=== PATIENT | female | born 1965 | race Caucasian/White ===

== ENCOUNTER 2019-05-08 11:36 | Emergency (ER) | payer SELFPAY ==
[2019-05-08 11:42] VITALS: BP 158/114; PULSE 94; RESP 18; TEMP 36.6; O2SAT 100; BMI 20.2
--- NOTE | 2019-05-08 11:50 | W.ED.SKABFB ---
HPI - Skin/Abscess/Foreign Bdy General: Chief complaint: Skin/Abscess/Foreign Body Stated complaint: upper lip infection Time Seen by Provider: 05/08/19 11:40 History of Present Illness: HPI narrative: Patient is a 53-year-old female who comes to the ED with upper lip cellulitis. Patient states on she woke up in her upper lip was swollen and red. Patient did state that she was having a lot of nasal drainage and blowing her nose a lot in the days leading up to . Patient says that her upper lip was little dry due to all the nasal drainage before . On Thursday she went into the urgent care and they gave her 2 steroid injections and put her on Bactrim. Patient says after the steroids some of the swelling did go down on Thursday, but today she woke up and the swelling and pain is worse and she rated the pain a 9 out of 10. She is taken 2 days worth of doses of the antibiotic since Thursday. Denies any drainage or known injury to cause swelling or infection. She denies any fever or chills. She denies any past history of MRSA or staph iinfections. Associated symptoms: Deny chills, fever(s), nausea or vomiting Review of Systems Const: Denies: fever, chills or fatigue Eyes: Denies: change in vision or eye discomfort ENMT: Denies: throat pain, painful swallowing, nasal discharge or nasal congestion Card: Denies: chest pain, palpitations, edema, swelling of feet/ankles, shortness of breath on exertion or shortness of breath when lying down Resp: Denies: shortness of breath, productive cough or non-productive cough GI: Denies: abdominal pain, nausea, vomiting, diarrhea, constipation or blood in stool : Denies: flank pain, painful urination or blood in urine Musc: Denies: neck pain, back pain or extremity swelling Skin/Breast: Reports: redness (upper lip), skin tenderness (upper lip), skin swelling (upper lip) and new lesion (upper lip); Denies: rash Neuro: Denies: headache, numbness in extremities or weakness in extremities PFSH ED PFSH: Social History Smoking and tobacco status: current every day smoker Physical Exam Narrative: EXAM NARRATIVE: Patient is a 53-year-old female that is sitting on the exam bed when I enter the room. Patient has noticeable upper lip swelling and redness. Const: COMMON NORMALS: oriented x3 HENMT: COMMON NORMALS: normocephalic HEAD & SCALP: normocephalic MOUTH: oral and palatal mucosa normal THROAT: posterior oropharynx normal and uvula midline Neck/C-Spine: COMMON NORMALS: supple GENERAL: Yes normal visual inspection Resp: COMMON NORMALS: normal respiratory effort, no retractions, no use of accessory muscles and clear to auscultation bilaterally AUSCULTATION: clear to auscultation bilaterally Cardio: COMMON NORMALS: regular rate, regular rhythm, S1 normal heart sound, S2 normal heart sound, no gallops, no clicks, no murmurs and peripheral pulses 2+ throughout RATE: regular rate RHYTHM: regular rhythm HEART SOUNDS: S1 normal and S2 normal PERIPHERAL PULSES: pulses 2+ throughout GI: COMMON NORMALS: normal to inspection, nondistended, normoactive bowel sounds, soft to palpation, non-tender and no masses PALPATION: Yes soft : COMMON NORMALS: Yes no CVA tenderness BLADDER/KIDNEY EXAM: Yes no CVA tenderness Back/Pelvis: COMMON NORMALS: no CVA tenderness Neuro: COMMON NORMALS: oriented x3 and moves all extremities Skin: LESIONS: lesion noted Upper lip is erythema, swelling and warmth. No drainage of pus. Infected area is hard, indurated and nonfluctuant Lesion color: Yes red Lesion consistency: No fluctuent, Yes firm and Yes indurated Lesion surface: Yes dry and Yes shiny Lesion border: Yes smooth and Yes irregular Lesion tenderness: Yes moderate Lesion finding consistent with: Yes cellulitis Course ED course: Patient's pain improved after given the hydrocodone here in the ED. I discussed with patient that I am going to send patient home with another antibiotic to take. Told her to take the Keflex as prescribed along with the previously prescribed Bactrim. I told the patient to follow-up within the next 2 to 3 days for reevaluation. Patient understood and agreed with plan. Vital Signs: Vital signs: Vital Signs Temperature 97.8 F 05/08/19 11:42 Pulse Rate 75 05/08/19 13:37 Respiratory Rate 17 05/08/19 13:37 Blood Pressure 112/64 05/08/19 13:37 Pulse Oximetry 100 05/08/19 13:37 MDM - Skin/Abscess/Foreign Bdy Lab Data: Attestation: I reviewed the patient's lab results. Labs: Lab Results 05/08/19 Range/Units 12:19 WBC 12.5 H (4.0-10.0) 10^3/ uL RBC 4.97 (4.1-5.3) 10^6/u L Hgb 14.9 (11.5-15.3) g/dL Hct 47.0 (37.0-47.0) % MCV 94.6 (81-99) fL MCH 30.0 (28.0-34.0) pg MCHC 31.7 (30.0-36.0) g/dL RDW 13.2 (12.1-15.1) % Plt Count 399 (130-400) 10^3/c mm MPV 9.7 (7.4-10.4) fL Neut % (Auto) 74.8 % Lymph % (Auto) 18.1 % Emanuel % (Auto) 5.8 % Eos % (Auto) 0.3 % Baso % (Auto) 0.5 % Neut # (Auto) 9.4 H (1.8-7.7) 10^3/u L Lymph # (Auto) 2.3 (0.8-4.8) 10^3/u L Emanuel # (Auto) 0.7 (0.2-0.9) 10^3/u L Eos # (Auto) 0.0 (0.0-0.8) 10^3/u L Baso # (Auto) 0.1 (0.0-0.1) 10^3/u L Nucleated RBC % (a uto) 0 % Nucleated RBCs # 0.0 /100WBC Discharge Plan Discharge Patient Disposition: Home, Self-Care Clinical Impression: Cellulitis Qualifiers: Site of cellulitis: face Qualified Code(s): L03.211 - Cellulitis of face Condition: Stable Prescriptions: New Keflex 500 mg capsule 500 mg PO BID 10 Days Qty: 20 RF: 0 No Action sulfamethoxazole-trimethoprim 800-160 mg tablet 1 tab PO BID RF: 0 Tylenol PM Extra Strength 25-500 mg Tablet 2 tab PO BEDTIME RF: 0 Discharge Diet: Regular Discharge Activity: Resume usual activity Patient Instructions: Cellulitis (ED) Activity Restrictions/Additional Instructions: Follow-up for reevaluation in the next 2 days at either urgent care or ED if not improving. If you start getting improvement you can then follow-up with your primary care doctor in 7 days. Take full course of antibiotics as prescribed. I am adding Keflex which is an antibiotic to the your treatment. Continue taking your Bactrim as well. Take ibuprofen or Tylenol for fever pain. Drink plenty of fluids and stay hydrated. Discharge Date/Time: 05/08/19 13:38 Coding Level of Care Code ED [employer] Exam Comprehensive
[2019-05-08] MEDS: HYDROcodone-acetaminophen 7.5-325 mg Tablet 1 TAB PO ×2 (12:24→13:34)
[2019-05-08 12:27] LABS: Basophils # 0.1 10^3/uL (0.0-0.1); Basophils % 0.5 %; Eosinophils % 0.3 %; Hemoglobin 14.9 g/dL (11.5-15.3); Lymphocytes # 2.3 10^3/uL (0.8-4.8); Lymphocytes % 18.1 %; Mean Corpuscular HGB Conc 31.7 g/dL (30.0-36.0); Mean Corpuscular Volume 94.6 fL (81-99); Mean Platelet Volume 9.7 fL (7.4-10.4); Monocytes # 0.7 10^3/uL (0.2-0.9); Monocytes % 5.8 %; Neutrophils # 9.4 10^3/uL (1.8-7.7); Neutrophils % 74.8 %; Nucleated Red Blood Cells % 0 %; Platelet Count 399 10^3/cmm (130-400); Red Blood Count 4.97 10^6/uL (4.1-5.3); Red Cell Distribution Width 13.2 % (12.1-15.1); White Blood Count 12.5 10^3/uL (4.0-10.0)
[2019-05-08] MEDS: cephALEXin 500 mg Capsule PO (13:34)
[2019-05-08 13:37] VITALS: BP 112/64; PULSE 75; RESP 17; O2SAT 100
== END 2019-05-08 13:38 | disposition home or self-care (01) ==
PROVIDERS: Emergency Provider Physician Assistant
DX: K13.0 Diseases of lips (principal); F17.200 Nicotine dependence, unspecified, uncomplicated
CPT/HCPCS: 12345; 36415; 85025; 87040; 99281; 99283